=== PATIENT | female | born 1960 | race Caucasian/White ===

== ENCOUNTER 2016-08-07 00:08 | Emergency (ER) | payer OTHER ==
[~2016-08-07] VITALS: Ht 165.1 cm; Wt 97.3 kg
[~2016-08-07 00:08] MED LIST: AMOX500T2 PO; ASPI-611 PO; ASPI1TAB7 PO; COCO1000 PO; SERT-77 PO
--- OUTSIDE RECORDS SUMMARY | 2016-08-07 00:12 | XMS REPORT | Continuity of Care Document ---
Author Author [facility] Organization [facility] Address Unknown Phone Unavailable Allergies Medications Problems Procedures Results Encounters ACCT No. Visit Date/Time Discharge Status Pt. Type Provider Facility Loc./Unit Complaint [id number] 07/13/2013 14:04:00 07/13/2013 23 :59:59 CLS Outpatient
--- OUTSIDE RECORDS SUMMARY | 2016-08-07 00:12 | XMS REPORT | Continuity of Care Document ---
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 Medications Medication Dose Route Sig Days/Qty Instructions Order Date Discontinued Date Status Sertraline Hcl 100 Mg PO DAILY 11/26/10 Active [Elderberry] DAILY 10/28/11 04/07/12 Discontinued Multivitamins 1 Tab PO DAILY 10/28/11 04/07/12 Discontinued Ascorbic Acid 500 Mg PO DAILY 10/28/11 04/07/12 Discontinued Calcium Carbonate/Vitamin D3 1 Tab PO DAILY 10/28/11 04/07/12 Discontinued Aspirin 81 Mg PO DAILY 10/28/11 Active Coconut Oil 1,000 Mg PO DAILY 02/28/14 Active Social History Social History Problem Response Recorded Date/Time Smoking Status Never smoker 02/28/2014 4:01pm Chewing Tobacco Status No 04/07/2012 1:38pm Hx Substance Use No 04/07/2012 1:38pm Hx Alcohol Use No 04/07/2012 1:38pm Has the pt used tobacco in the last 12 months No 04/07/2012 1:38pm Query Response Start Date Stop Date Smoking Status Never smoker Hospital Discharge Instructions No hospital discharge instructions. Plan of Care No plan of care. Functional Status No functional status results. Allergies, Adverse Reactions, Alerts Allergen Type Severity Reaction Status Last Updated No Known Drug Allergies Allergy Active 10/28/11 Immunizations Name Given Type Hx Influenza Vaccination Y DEC 2010 Historical Hx Pneumococcal Vaccination No Historical Hx Tetanus, Diptheria, Pertussis NO OPEN AREAS Historical Hx Influenza Vaccination Y DEC 2010 Historical Hx Tetanus, Diptheria, Pertussis NO OPEN AREAS Historical Vital Signs Acute Vital Signs Vital Response Date/Time Temperature (Fahrenheit) 98.5 deg F (96.8 - 99.1) Temperature (Calculated Celsius) 36.19537 degrees C (36.0 - 37.3) Temperature Source Temporal Pulse Rate (adult) 62 bpm (60 - 100) Respiratory Rate 13 breaths/min (10 - 20) O2 Sat by Pulse Oximetry 97 % (90 - 100) Oxygen Delivery Method Room Air Blood Pressure 114/59 mm Hg Blood Pressure Source Automatic Cuff Height 5 ft 5 in Weight 202 lb Body Mass Index 33.0 kg/m^2 Results Test Source Date Result Interp. Ref. Range Comments Hepatitis B Surface Ab Concentrat January 30, 2011 4:29pm Positive - Mumps Virus IgG Antibody July 09, 2010 4:00pm Ref lab rpt scanned - --- 07/12/10 1021 ---[facility] previously reported as: SEND OUT Rubella Screen July 09, 2010 4:00pm Positive - Troponin I July 19, 2012 6:10pm < 0.012 ng/ml 0-0.12 Urine Barbiturates Screen October 29, 2011 2:19pm Negative NG/ML - Urine Benzodiazepines Screen October 29, 2011 2:19pm Negative NG/ML - Urine Cocaine Screen October 29, 2011 2:19pm Negative NG/ML - Urine Drug Screen Confirmation October 29, 2011 3:03pm Sent out - Urine Methamphetamines Screen March 27, 2010 9:55am Negative NG/ML - Urine Opiates Screen October 29, 2011 2:19pm Sent for confirm NG/ML - Urine Phencyclidine Screen October 29, 2011 2:19pm Negative NG/ML - Cord Blood Rubella IgG Antibody July 09, 2010 4:00pm Ref lab rpt scanned - --- 07/12/10 1021 ---[facility] previously reported as: SEND OUT Lab Scanned Report January 23, 2014 8:20pm LAB TEST FORM REQUEST [id number] - Urine Cannabinoids Screen October 29, 2011 2:19pm Negative NG/ML - Urine Amphetamine Screen October 29, 2011 2:19pm Negative NG/ML - Gram Stain Vulva November 26, 2010 9:55am Group A Streptococcus Culture Throat January 23, 2014 5:50pm Name: OLYA DUBON Unit #: [id number] : 1960 Sex: F Loc / Svc: DANITZA DOS: 02/28/14 Signed Report #: [id number] DIAGNOSTIC IMAGING REPORT TYPE OF EXAM: MRI KNEE LEFT W/O CONTRAST Dictated By: AN GROVER MD INDICATION: ITS.REASON: 719.46 LT KNEE PAIN MRI KNEE LEFT W/O CONTRAST: Comparison: None Technique: Multiplanar multisequence MR imaging of the left knee was performed without contrast. Findings: The lateral meniscus is intact. Medial meniscus appears normal. The ACL and PCL are intact. The MCL is mildly thickened, but intact. Lateral collateral ligament complex is intact. Extensor mechanism is normal. There is some linear T2 hyperintensity within the lateral tibial plateau. The remainder of the bone marrow signal intensity is normal. Lateral compartment cartilage is intact. Medial compartment cartilage is normal. Patellofemoral compartment shows full-thickness loss in the median ridge and medial facet. Partial-thickness loss in the lateral facet. No joint effusion or dickerson's cyst. Muscular signal intensity is within normal limits. Popliteus tendon and muscle appear normal. Impression: No meniscal or ligamentous injury seen. 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 . Procedures Procedure Status Date Provider(s) Colonoscopy with polypectomy and biopsy completed 03/01/14 SHAHEEN VILLAFANA DO Encounters Encounter Location Date/Time Registered [facility] 02/28/14 12:21pm Registered Clinic [facility] 01/23/14 8:16pm
--- OUTSIDE RECORDS SUMMARY | 2016-08-07 00:12 | XMS REPORT | Continuity of Care Document ---
Author Author [facility] Organization [facility] Address Unknown Phone Unavailable Care Team Providers Care Assessment Technician Name Role Phone SHAHEEN VILLAFANA DO Primary Care Physician [phone] Insurance Providers Guarantor Olya Dubon Address [address] [place] [address] CP Email [email or web address] Policy Number [id number] Subscriber's Name JagdishGianna D Relationship 01 Spouse Group Number [id number] Chief Complaint and Reason for Visit Chief Complaint Cough,Fever,Flu,URI Reason for Visit [id number] Problems Active Problems Medical Problem Onset Date Status Contusion of left knee Unknown Acute Past Problems Medical Problem Onset Date Strep pharyngitis Unknown Medications Current Home Medications Medication Dose Units Route Directions Days Qty Instructions Start Date Amoxicillin 500 Mg Tablet 500 Mg Oral Three Times A Day 10 Days [address] Cipriano Hall [employer] Control Ass[employer] [facility] [address] [phone] 02/24/16 Aspirin 81 Mg Tablet 81 Mg Oral Daily 10/28/11 Aspirin/Acetaminophen/Caffeine (Excedrin Migraine Caplet) 1 Each Tablet 1 Tab Oral Every 4 Hours as needed for Pain 02/24/16 Coconut Oil 1,000 Mg Capsule 1,000 Mg Oral Daily 02/28/14 Sertraline Hcl (Zoloft) 100 Mg Tablet 100 Mg Oral Daily 11/26/10 Past Home Medications Medication Directions Ordered Status Ascorbic Acid (Vitamin C) 500 Mg Tablet, 500 Mg Oral Daily 10/28/11 Discontinued Calcium Carbonate/Vitamin D3 (Calcium + D 600 Mg Tablet) 1 Tab Tablet, 1 Tab Oral Daily 10/28/11 Discontinued Elderberry , Daily 10/28/11 Discontinued Multivitamins (Multivitamin) 1 Tab Tablet, 1 Tab Oral Daily 10/28/11 Discontinued Social History Social History Problem Response Recorded Date/Time Onset Date Status Chewing Tobacco Status No 04/07/2012 1:38pm Not Applicable Not Applicable Hx Substance Use No 08/30/2015 11:51pm Not Applicable Not Applicable Hx Alcohol Use No 08/30/2015 11:51pm Not Applicable Not Applicable Has the pt used tobacco in the last 12 months No 04/07/2012 1:38pm Not Applicable Not Applicable Hospital Discharge Instructions No hospital discharge instructions. Plan of Care Discharge Date 02/24/16 7:05pm Disposition 01 DISCHARGED HOME, SELF-CARE Condition at Discharge Stable Instructions/Education Provided DI for Strep Throat Forms Provided Return to Work/School Permit Prescriptions See Medication Section Referrals SHAHEEN VILLAFANA DO Address: [address] [place] [address] [place] [address] [phone] Additional Instructions/Education Take amoxicillin as directed. Use ibuprofen up to 800 mg every 8 hours for sore throat and fevers as needed, or tylenol. Off work 24 hours on antibiotic before returning to work. Functional Status No functional status results. Allergies, Adverse Reactions, Alerts Allergen Type Severity Reaction Status Last Updated No Known Drug Allergies Allergy Active 10/28/11 Immunizations Query Response on File Recorded Date/Time Hx Influenza Vaccination Y DEC 2010 12/16/11 1:18pm Hx Pneumococcal Vaccination No 12/16/11 1:18pm Hx Tetanus, Diptheria, Pertussis NO OPEN AREAS 10/28/11 11:45pm Hx Influenza Vaccination Y DEC 2010 12/16/11 1:18pm Hx Tetanus, Diptheria, Pertussis NO OPEN AREAS 10/28/11 11:45pm Influenza Vaccine Hx 01/201602/24/16 6:41pm Vital Signs Acute Vital Signs Vital Response Date/Time Temperature (Fahrenheit) 97.2 deg F (96.8 - 99.1) 02/24/2016 6:37pm Temperature (Calculated Celsius) 36.24658 degrees C (36.0 - 37.3) 02/24/2016 6:37pm Pulse Rate (adult) 76 bpm (60 - 100) 02/24/2016 6:37pm Respiratory Rate 18 breaths/min (10 - 20) 02/24/2016 6:37pm O2 Sat by Pulse Oximetry 98 % (90 - 100) 02/24/2016 6:37pm Blood Pressure 118/72 mm Hg 02/24/2016 6:37pm Height (Inches) 65.10 inches 02/24/2016 6:37pm Weight (Kilograms) 95.500 kg 02/24/2016 6:37pm Body Mass Index (BMI) 34.0 02/24/2016 6:37pm Results Laboratory Results Test Name Result Units Flags Reference Collection Date/Time Result Date/ Time Comments Group A Streptococcus Screen POSITIVE A NEGATIVE 02/24/2016 6:36pm 6:59pm Procedures No known history of procedures. Encounters Encounter Location Arrival/Admit Date Discharge/Depart Date Attending Provider Departed Emergency Room [facility] 02/24/16 6:34pm 02/24/16 7: 05pm FREDY ROTHMAN APRN Recent Diagnosis
[2016-08-07 00:25] VITALS: BP 134/68; PULSE 71; RESP 16; TEMP 97.7; O2SAT 95; Ht 165.1 cm; Wt 97.3 kg
--- NOTE | 2016-08-07 00:38 | ERPDOC ---
Departure Disposition Decision Date: Aug 07, 2016 Disposition Decision Time: 00:52 Disposition: 01 DISCHARGED HOME, SELF-CARE Impression Impression Impression: Primary Impression: Contusion of hand, right Severity: Moderate Condition: Stable Seen By: Physician only Referrals: SHAHEEN VILLAFANA DO (PCP) 1 Week Patient Instructions: Contusion in Adults (ED) Problems/Meds/Labs Reviewed?: Yes Medications reviewed and manag: Yes Additional Instructions: You have bruised your hand. Use ice, tylenol, and naproxen to help with pain and swelling. Follow up with your doctor next week, especially if you symptoms don't improve. Follow up care ordered?: Yes Mental Status: Alert, Oriented HPI General Chief Complaint: Upper Extremity Injury Stated Complaint: DOOR SLAMMED ON R HAND Time Seen by Provider: 00:38 Source: patient Exam Limitations: no limitations HPI Hand/Forearm Initial Comments 56yo woman presents to the ER tonight for right hand pain. Pt got her hand caught in the door at work. Now has pain, swelling, and bruising over the dorsum of her right hand. Occurred At: work Onset: Rapid Duration: 1/2 hour Pain Scale: Now & Worst: 5/10 Severity: moderate Location: right: hand Method of Injury: direct blow Modifying Factors: IMPROVES WITH: cold therapy, immobilization, WORSE WITH: jarring, movement Associated Symptoms: bruising, pain with flexion, pain with grasp, swelling Allergies: Coded Allergies: No Known Drug Allergies (Verified Allergy, Unknown, 08/07/16) Past History Past Medical History Psychological: depression Surgical History Reproductive/: tubal ligation Family History Family PMH: FOUND: cancer, diabetes, hypertension Vaccines Hx Influenza Vaccination: Yes (DEC 2010) Hx Pneumococcal Vaccination: No Review of Systems Musculoskeletal General: pain All other Systems All Other Systems: Reviewed and Negative Exam General General Nourishment: well nourished, well developed, appears stated age, no acute distress, adult, obese General Body Habitus: well groomed Vital Signs: RN Vital Signs have been reviewed: Yes Height (Feet): 5 Height (Inches): 65.10 Fastrak Hand/Forearm Hand/Forearm : Upper Extremity: Right Hand: ecchymosis, erythema, swelling, tender, NOT FOUND: deformity Fingers: cap refill <2sec ea digit Neurologic RN Documented GCS Eye Opening: Verbal: Motor: Total: Supervisory Exam Body Habitus: well groomed Head: atraumatic Eyes: PERRL Nares: no exudate Neck: trachea midline Chest: symmetric Abdomen: non-distended Neurological: no abnormal movements Skin: pink, dry Psychological: alert, appropriate Differential Diagnoses Considering: Compartment Syndrome, Contusion, Dislocation, Fracture, Laceration , Sprain, Strain, Extensor Tendon Injury, Flexor Tendon Injury Progress Results/Orders Orders Progress Progress No fx noted. Discussed dx, prognosis, and tx, pt voiced understanding. F/u with PCM. Xray Xray : Xray: Hand R Interpretation: Normal, Interpreted by AGNES Curiel DO Aug 07, 2016 00:38 Progress No fx noted. Discussed dx, prognosis, and tx, pt voiced understanding. F/u with PCM. Xray Xray : Xray: Hand R Interpretation: Normal, Interpreted by AGNES Curiel DO Aug 07, 2016 00:38
--- NOTE | 2016-08-07 00:40 | NUR ---
IMAGING PT LEAVES VIA WHEELCHAIR WITH IMAGING STAFF AT THIS TIME.
--- OUTSIDE RECORDS SUMMARY | 2016-08-07 00:46 | XMS REPORT | Continuity of Care Document ---
Author Author [facility] Organization [facility] Address Unknown Phone Unavailable Allergies Medications Problems Procedures Results Encounters ACCT No. Visit Date/Time Discharge Status Pt. Type Provider Facility Loc./Unit Complaint [id number] 07/13/2013 14:04:00 07/13/2013 23 :59:59 CLS Outpatient
--- OUTSIDE RECORDS SUMMARY | 2016-08-07 00:46 | XMS REPORT | Continuity of Care Document ---
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 Name Role Phone SHAHEEN VILLAFANA DO Primary Care Physician [phone] Insurance Providers Payer Name Policy Number Subscriber Name Relationship [employer] [id number] Gianna Dubon 01 Spouse Advance Directives Directive [...] F (96.8 - 99.1) Temperature (Calculated Celsius) 36.61280 degrees C (36.0 - 37.3) Temperature Source [...] 23, 2014 8:20pm LAB TEST FORM REQUEST [id number] - Urine Cannabinoids Screen October 29, 2011 2:19pm Negative NG/ML - Urine Amphetamine Screen October 29, 2011 2:19pm Negative NG/ML - Gram Stain Vulva November 26, 2010 9:55am Group A Streptococcus Culture Throat January 23, 2014 5:50pm Name: OLYA DUBON Unit #: [id number] : 1960 Sex: F Loc / Svc: DANITZA DOS: 02/28/14 Signed Report #: [id number] DIAGNOSTIC IMAGING REPORT TYPE OF EXAM: MRI [...] VILLAFANA DO Encounters Encounter Location Date/Time Registered [facility] 02/28/14 12:21pm Registered Clinic [facility] 01/23/14 8:16pm
--- NOTE | 2016-08-07 00:50 | NUR ---
RETURN PT RETURNS TO ROOM AT THIS TIME.
--- NOTE | 2016-08-07 01:00 | NUR ---
DEPART PT IS DISCHARGED AT THIS TIME, INSTRUCTIONS ARE REVIEWED AND UNDERSTANDING IS VOICED. PT LEAVES AMBULATORY.
--- NOTE | 2016-08-07 08:06 | DI ---
Indication: ITS.REASON: Right hand trauma, Hand vs door PROCEDURE: HAND RIGHT 3 VIEW: Encounter: Initial Comparison: None Findings: There is no acute fracture, dislocation or malalignment identified. Impression: No acute osseous abnormality. .
== END 2016-08-07 01:00 | disposition home or self-care (01) ==
LOC: ED 00:08
DX: S60.221A Contusion of right hand, initial encounter (principal); W23.0XXA Caught, crushed, jammed, or pinched between moving objects, initial encounter; Y93.9 Activity, unspecified; Y92.9 Unspecified place or not applicable; Y99.0 Civilian activity done for income or pay